=== PATIENT | female | born 2000 | race Caucasian/White ===

== ENCOUNTER 2019-06-17 14:51 | Inpatient (IN) ==
[2019-06-17] MEDS ORDERED: Lidocaine 1% 20 ML MDV INFILT PRN (15:44)
[2019-06-17] MEDS ORDERED: Ondansetron 4 MG/2 ML VIAL IVP PRN (15:44)
[2019-06-17] MEDS ORDERED: Naloxone 0.4 MG/ML INJ IVP PRN (15:44)
[2019-06-17] MEDS ORDERED: *HR* Nalbuphine 10 MG/ML AMPUL IVP PRN (15:44)
[2019-06-17] MEDS ORDERED: Famotidine 20 MG/2 ML VIAL IVP PRN (15:44)
[2019-06-17] MEDS ORDERED: Metoclopramide 10 MG/2 ML VIAL IVP PRN (15:44)
[2019-06-17] MEDS ORDERED: Ringers Solution, Lactated 1,000 ML IVC SCH (15:45)
[2019-06-17] MEDS ORDERED: Ropivacaine/PF 0.2% 20 ML VIAL EP ONE (16:17)
[2019-06-17] MEDS ORDERED: *HR* FentaNYL (PF) 100 MCG/2 ML VIAL EP ONE (16:17)
[2019-06-17 16:20] LABS: Basophils % 0.3 %; Eosinophils # 0.1 K/mcL (0.0-0.6); Eosinophils % 0.7 %; Hematocrit 34.2 % (35.3-44.9); Hemoglobin 10.7 g/dL (11.5-15.4); Lymphocytes # 1.8 K/mcL (0.6-4.6); Mean Corpuscular HGB Conc 31.3 g/dL (31.6-35.5); Mean Corpuscular Hemoglobin 24.9 pg (28.0-33.3); Mean Corpuscular Volume 79.7 fL (83.0-100.0); Mean Platelet Volume 13.3 fL (9.4-12.4); Monocytes # 0.7 K/mcL (0.0-1.3); Monocytes % 5.5 %; Neutrophils # 9.9 K/mcL (1.6-8.9); Platelet Count 219 K/mcL (140-400); Red Blood Count 4.29 M/mcL (3.82-4.97); Red Cell Distribution Width 13.4 % (11.5-14.5); Segmented Neutrophils % 78.5 %; White Blood Count 12.6 K/mcL (4.3-11.1)
[2019-06-17] MEDS ORDERED: Epidural Premix (fent/bupiv) 110 ML EP SCH (16:30)
[2019-06-17] MEDS ORDERED: *HR* FentaNYL (PF) 100 MCG/2 ML VIAL ONE (16:31)
[2019-06-17] MEDS ORDERED: Ropivacaine/PF 0.2% 20 ML VIAL ONE (16:32)
[2019-06-17 16:42] LABS: Alanine Aminotransferase 11 Units/L (7-52); Aspartate Amino Transferase 12 Units/L (13-39); BUN/Creatinine Ratio 14 (6-26); Blood Urea Nitrogen 9 mg/dL (6-20); Lactate Dehydrogenase 142 Units/L (140-271); Uric Acid 4.4 mg/dL (2.3-7.6); eGFR For African Americans > 60; eGFR For Non-African Americans > 60
[2019-06-17] MEDS ORDERED: Oxytocin 20 units/ LR 1000 mL 20 UNIT/1,000 ML BAG IVC SCH (16:45)
[2019-06-17 18:01] LABS: Protein/Creatinine Ratio,Urine 0.15 mg/mg (0.00-0.20)
[2019-06-17 18:04] LABS: Amphetamine Screen,Urine Negative ng/mL (Cutoff=1000); Barbiturate Screen,Urine Negative ng/mL (Cutoff=200); Benzodiazepines Screen,Urine Negative ng/mL (Cutoff=200); Cannabinoid Screen,Urine Negative ng/mL (Cutoff = 50); Cocaine Screen,Urine Negative ng/mL (Cutoff= 300); Opiate Screen,Urine Negative ng/mL (Cutoff=300); Phencyclidine Screen,Urine Negative ng/mL (Cutoff=25)
[2019-06-18] MEDS ORDERED: Benzocaine/Menthol 56 GM AEROSOL SPRAY TP PRN (03:49)
[2019-06-18] MEDS ORDERED: Ibuprofen 600 MG TABLET PO PRN (03:49)
[2019-06-18] MEDS ORDERED: Acetaminophen 325 MG TABLET PO PRN (03:49)
[2019-06-18] MEDS ORDERED: Rho Immune Globulin 1,500 UNIT SYRINGE IM PRN (03:49)
[2019-06-18] MEDS ORDERED: Measles/Mumps/Rubella Vacc 0.5 ML VIAL SQ PRN (03:49)
[2019-06-18] MEDS ORDERED: Oxytocin 20 units/ LR 1000 mL 20 UNIT/1,000 ML BAG IVC SCH (03:49)
[2019-06-18 08:14] LABS: Basophils % 0.1 %; Hematocrit 30.8 % (35.3-44.9); Hemoglobin 9.6 g/dL (11.5-15.4); Immature Granulocytes % 0.7 % (0-4); Lymphocytes # 1.7 K/mcL (0.6-4.6); Lymphocytes % 8.9 %; Mean Corpuscular HGB Conc 31.2 g/dL (31.6-35.5); Mean Corpuscular Hemoglobin 24.6 pg (28.0-33.3); Mean Platelet Volume 13.1 fL (9.4-12.4); Monocytes # 0.9 K/mcL (0.0-1.3); Monocytes % 4.6 %; Neutrophils # 16.2 K/mcL (1.6-8.9); Platelet Count 210 K/mcL (140-400); Red Cell Distribution Width 13.6 % (11.5-14.5); Segmented Neutrophils % 85.7 %; White Blood Count 18.8 K/mcL (4.3-11.1)
[2019-06-18] MEDS: Prenatal Vit/FA 1 EACH TABLET PO SCH (08:14)
[2019-06-19 07:44] VITALS: BP 133/83
[2019-06-19] MEDS: Prenatal Vit/FA 1 EACH TABLET PO SCH (10:36)
== END 2019-06-19 10:50 | disposition home or self-care (01) | DRG 560 ==
LOC: 1NENULAB → OBSVTOIN 14:51 → 1NENUOBS 06-18 03:46
PROVIDERS: ADMIT Registered Nurse; ATTEND Registered Nurse